=== PATIENT | female | born 1935 | race Native Hawaiian/Other Pacific Islander ===

== ENCOUNTER 2019-08-29 23:25 | Emergency (ER) | payer OTHER ==
[~2019-08-29] VITALS: Ht 154.9 cm; Wt 68.0 kg
[2019-08-30] LABS: PLATELET COUNT 356 K/uL (152-353); POTASSIUM 3.6 mmol/L (3.6-5.2)
[2019-08-30 01:33] VITALS: BP 136/72; TEMP 98.1
[2019-08-30] MEDS ORDERED: BINOSTO70 MG PO ×2 (09:23→09:24)
[2019-08-30] MEDS ORDERED: DONE5TAB PO (09:26)
[2019-08-30] MEDS ORDERED: AMLODIPINE BESYLATE PO (09:26)
[2019-08-30] MEDS ORDERED: LIPITOR10 MG PO (09:27)
[2019-08-30] MEDS ORDERED: CALCIUM CARBONA1 TA1 PO (09:28)
[2019-08-30] MEDS ORDERED: EUTHYROX25 MCG PO (09:30)
[2019-08-30] MEDS ORDERED: POTASSIUM CHLO20 ME1 PO (09:31)
[2019-08-30] MEDS ORDERED: VENLAFAXINE H37.5 MG PO (09:32)
[2019-08-30] MEDS ORDERED: TRIA0.1C5 TOP (09:34)
[2019-09-11] MEDS ORDERED: VENLAFAXINE150 M1 PO (19:29)
[2019-09-11] MEDS ORDERED: RISP0.25 PO (19:29)
[2019-09-11] MEDS ORDERED: MEMA5TAB PO (19:30)
[2019-09-11] MEDS ORDERED: NITR100C56 PO (19:30)
[2019-09-11] MEDS ORDERED: ABILIFY MYCITE5 MG PO (19:32)
[2019-09-11] MEDS ORDERED: WELLBUTRIN100 M1 PO (19:32)
[2019-09-11] MEDS ORDERED: KP FOLIC ACID1 MG PO (19:41)
== END 2019-08-30 01:34 | disposition still patient (30) ==
LOC: ED 23:25
PROVIDERS: Emergency Medicine Emergency Medical Services
DX: G30.8 Other Alzheimer's disease (principal); F02.81 Dementia in other diseases classified elsewhere, unspecified severity, with behavioral disturbance; R94.31 Abnormal electrocardiogram [ECG] [EKG]; Z04.6 Encounter for general psychiatric examination, requested by authority
CPT/HCPCS: 80053; 85027; 93005; 99285